=== PATIENT | female | born 1950 | race Caucasian/White ===

== ENCOUNTER → 2016-12-12 | Outpatient (CLI) | payer MEDICARE, OTHER ==
--- NOTE | 2016-12-12 12:17 | Diagnostic Imaging Report ---
INDICATION: Diabetic ulcer in the fourth digit. TECHNIQUE: AP, oblique, and lateral views of the right foot were obtained. FINDINGS: No fracture or acute bony abnormality is seen. There is no bony destructive lesion. There are degenerative findings of the midtarsal and tarsometatarsal joints. There is plantar calcaneal spurring. IMPRESSION: Chronic findings as above with no acute bony abnormality. Dictated by: Dictated on workstation # [id number]
== END ==
LOC: RAD 10:55
PROVIDERS: ATTEND Surgery
DX: E11.621 Type 2 diabetes mellitus with foot ulcer (principal); L97.512 Non-pressure chronic ulcer of other part of right foot with fat layer exposed; L03.115 Cellulitis of right lower limb
CPT/HCPCS: 73630

== ENCOUNTER 2017-01-09 08:32 | Outpatient (RCR) | payer MEDICARE, OTHER ==
--- OUTSIDE RECORDS SUMMARY | 2016-12-12 09:21 | XMS REPORT ---
Author Author JIE CARVER Organization [employer] Address Unknown Phone Unavailable Care Team Providers Care Last Puller Name Role Phone JIE CARVER CP Unavailable Allergies, Adverse Reactions, Alerts Substance Reaction Event Type Morphine Sulfate Info Not Available Drug Allergy Codeine Sulfate Info Not Available Drug Allergy Problems Problem Type Condition Code Onset Dates Condition Status Problem Mixed hyperlipidemia E78.2 Active Problem Diabetes type 2, uncontrolled E11.65 Active Problem Noncompliance of patient with dietary regimen Z91.11 Active Problem Counseling on health promotion and disease prevention Z71.89 Active Problem Acute cystitis with hematuria N30.01 Active Problem Type 2 diabetes mellitus with hyperglycemia E11.65 Active Problem Acute non-recurrent pansinusitis J01.40 Active Problem Essential hypertension with goal blood pressure less than 130\\/80 I10 Active Problem Tinnitus of both ears H93.13 Active Problem Vertigo R42 Active Assessment Counseling on health promotion and disease prevention Z71.89 Active Assessment Type 2 diabetes mellitus with hyperglycemia E11.65 Active Problem Second degree burn of finger of left hand, initial encounter T23.222A Active Assessment Encounter for immunization Z23 Active Problem Dysthymia F34.1 Active Medications Medication Code System Code Instructions Start Date End Date Status Dosage Atorvastatin Calcium [facility] 22032208292 40 MG take 1 tablet by Oral route at bedtime 1 time per day Avoid grapefruit juice Omeprazole [facility] 65993832990 20 MG take 1 capsule (20 mg) by oral route once daily before a meal Once a day Orally 90 days Trulicity [facility] [address]-47 0.75 MG/0.5ML Subcutaneous once weekly May 0.5 ml Aspir-81 [facility] [address]-62 81 MG Orally Once a day 1 tablet Mirtazapine [facility] [address]-77 15 MG Orally Once a day 1 tablet before bedtime in the evening Lisinopril-Hydrochlorothiazide [facility] 46467432454 20-12.5 MG Orally Once a day 1 tablet Sudafed [facility] [address]-66 60 mg Orally 3 times a day Jun 29, 2016 1 tablet as needed for sinus congestion Sertraline HCl [facility] [address]-70 100 MG Orally Once a day Aug 03, 2015 1 tablet Meclizine HCl [facility] [address]-49 25 MG Orally every 8 hours, PRN Jun 29, 2016 1 tablet as needed for vertigo Levemir [facility] 63232355886 100 UNIT/ML 70 units 2 times a day Subcutaneous Pen [place] 03/27" [facility] [address]-69 31G X 8 MM subcutaneously 4 times a day May 18, 2016 QID NovoLog Flexpen [facility] [address]-70 100 UNIT/ML Subcutaneous 3 times a day Sep 10, 2014 inject 25 Units by Subcutaneous route before meals 3 times per day Omeprazole [facility] 65845757406 20 MG TAKE ONE CAPSULE BY MOUTH ONCE DAILY BEFORE A MEAL. Lopressor [facility] 72903442704 50 MG 1 tablet every 12 hrs Orally 90 days Farxiga [facility] 17571706442 10 MG take 1 tablet by Oral route 1 time per day in the morning in am Once a day Orally 90 days Glucophage [facility] [place] [address]-75 1,000 mg Orally Twice a day Dec 17, 2014 1 tablet by Oral route 2 times per day with meals BusPIRone HCl [facility] [address]-15 10 MG Orally Twice a day Aug 03, 2015 1 tablet anxiety Zoloft [facility] 64574804545 100 MG 1 tablet by Oral route 1 time per day Procedures Procedure Coding System Code Date [facility] NOBLL Oct 04, 2016 VENIPUNCT, ROUTINE* CPT-4 72011 Oct 04, 2016 GLYCATED HEMOGLOBIN TEST CPT-4 76575 Oct 04, 2016 IMMUNIZATION ADMIN, EACH ADD (please include units) CPT-4 26413 Oct 04, 2016 SINGLE IMMUNIZATION ADMIN CPT-4 40755 Oct 04, 2016 Office Visit, Est Pt., Level 4 CPT-4 83718 Oct 04, 2016 [facility] VISIT ESTABLISHED PATIENT CPT-4 G0467 Oct 04, 2016 FLUARIX QUAD P-FREE 3 AND UP .50 2015 CPT-4 68870 Oct 04, 2016 PPV23 (PNEUMOVAX) CPT-4 74845 Oct 04, 2016 Vital Signs Date/Time: Oct 04, 2016 Cardiac Monitoring Heart Rate 76 bpm Weight 213.3 lbs Height 65 in BMI 35.49 Index Blood Pressure Diastolic 72 mmHg Blood Pressure Systolic 128 mmHg Results Name Result Date Reference Range Unit Abnormality Flag CBC ----Lymphs 36 03562949 % ----Neutrophils 56 09665696 % ----Baso (Absolute) 0.0 [id number] 0.0-0.2 x10E3/uL ----Hemoglobin 14.0 52742311 11.1-15.9 g/dL ----Eos (Absolute) 0.2 83299115 0.0-0.4 x10E3/uL ----Hematocrit 41.8 27788980 34.0-46.6 % ----Monocytes(Absolute) 0.5 34891131 0.1-0.9 x10E3/uL ----MCV 83 74776977 79-97 fL ----Lymphs (Absolute) 3.2 73995486 0.7-3.1 x10E3/uL H ----MCH 27.7 36004257 26.6-33.0 pg ----Neutrophils (Absolute) 5.0 44350243 1.4-7.0 x10E3/uL ----MCHC 33.5 68858033 31.5-35.7 g/dL ----Immature Granulocytes 0 57141941 % ----Basos 0 77439359 % ----RDW 15.1 46907613 12.3-15.4 % ----Immature Grans (Abs) 0.0 76481688 0.0-0.1 x10E3/uL ----WBC 8.9 73008042 3.4-10.8 x10E3/uL ----Platelets 204 91715189 150-379 x10E3/uL ----Eos 2 79264017 % ----RBC 5.05 18734937 3.77-5.28 x10E6/uL ----Monocytes 6 14899966 % LIPID PANEL ----LDL Cholesterol Calc 105 99509490 0-99 mg/dL H ----VLDL Cholesterol Phani 47 08356116 5-40 mg/dL H ----Cholesterol, Total 190 71741312 100-199 mg/dL ----HDL Cholesterol 38 20161004 >39 mg/dL L ----Triglycerides 237 20161004 0-149 mg/dL H A1C (IN HOUSE) ----A1C IN HOUSE 7.6 20161004 4.3 - 5.6 % ----Previous A1c 8.6 20161004 ----Lot 0644 [id number] ----Exp date 20161004 ROUTINE VENIPUNCTURE CMP ----Potassium, Serum 3.8 20161004 3.5-5.2 mmol/L ----Sodium, Serum 139 20161004 136-144 mmol/L ----BUN/Creatinine Ratio 26 20161004 11-26 ----eGFR If Africn Am 79 92760091 >59 mL/min/1.73 ----eGFR If NonAfricn Am 68 67824663 >59 mL/min/1.73 ----Creatinine, Serum 0.89 20161004 0.57-1.00 mg/dL ----BUN 23 20161004 8-27 mg/dL ----Glucose, Serum 151 20161004 65-99 mg/dL H ----AST (SGOT) 17 20161004 0-40 IU/L ----Globulin, Total 2.5 20161004 1.5-4.5 g/dL ----ALT (SGPT) 22 20161004 0-32 IU/L ----A/G Ratio 1.7 20161004 1.1-2.5 ----Bilirubin, Total 0.3 20161004 0.0-1.2 mg/dL ----Alkaline Phosphatase, S 55 20161004 39-117 IU/L ----Carbon Dioxide, Total 24 20161004 18-29 mmol/L ----Calcium, Serum 9.5 20161004 8.7-10.3 mg/dL ----Protein, Total, Serum 6.8 20161004 6.0-8.5 g/dL ----Albumin, Serum 4.3 20161004 3.6-4.8 g/dL ----Chloride, Serum 97 20161004 97-106 mmol/L Immunizations Vaccine Administration Date FLUARIX QUAD P-FREE 3 AND UP .50 2015Oct 04, 2016 [id number] (PNEUMOVAX) Oct 04, 2016 Summary Purpose [employer] Submission
== END 2017-01-09 16:00 | disposition home or self-care (01) ==
LOC: WOUNDCARE 08:32
PROVIDERS: ATTEND Surgery
DX: E11.621 Type 2 diabetes mellitus with foot ulcer (principal); L97.512 Non-pressure chronic ulcer of other part of right foot with fat layer exposed; L03.115 Cellulitis of right lower limb
CPT/HCPCS: 11042; 73630; 87070; 87075; 87077; 87186; 87205; 99212

== ENCOUNTER → 2019-08-25 | Outpatient (CLI) | payer MEDICARE, OTHER | LOC: WOUNDCARE 12:28 | PROVIDERS: ATTEND Surgery | DX: E11.622 Type 2 diabetes mellitus with other skin ulcer (principal); E11.42 Type 2 diabetes mellitus with diabetic polyneuropathy; E11.52 Type 2 diabetes mellitus with diabetic peripheral angiopathy with gangrene; L97.222 Non-pressure chronic ulcer of left calf with fat layer exposed; I96 Gangrene, not elsewhere classified; L97.211 Non-pressure chronic ulcer of right calf limited to breakdown of skin; L95.9 Vasculitis limited to the skin, unspecified | CPT/HCPCS: 11104 ==

== ENCOUNTER → 2019-09-01 | Outpatient (CLI) | payer MEDICARE | LOC: WOUNDCARE 13:51 | PROVIDERS: ATTEND Surgery | DX: L97.222 Non-pressure chronic ulcer of left calf with fat layer exposed (principal); L97.211 Non-pressure chronic ulcer of right calf limited to breakdown of skin; I87.333 Chronic venous hypertension (idiopathic) with ulcer and inflammation of bilateral lower extremity; E11.42 Type 2 diabetes mellitus with diabetic polyneuropathy; E11.622 Type 2 diabetes mellitus with other skin ulcer; E11.52 Type 2 diabetes mellitus with diabetic peripheral angiopathy with gangrene | CPT/HCPCS: 11042 ==

== ENCOUNTER → 2019-09-08 | Outpatient (CLI) | payer MEDICARE | LOC: WOUNDCARE 14:04 | PROVIDERS: ATTEND Surgery | DX: E11.622 Type 2 diabetes mellitus with other skin ulcer (principal); E11.42 Type 2 diabetes mellitus with diabetic polyneuropathy; E11.52 Type 2 diabetes mellitus with diabetic peripheral angiopathy with gangrene; I96 Gangrene, not elsewhere classified; L97.222 Non-pressure chronic ulcer of left calf with fat layer exposed; L97.211 Non-pressure chronic ulcer of right calf limited to breakdown of skin; I87.333 Chronic venous hypertension (idiopathic) with ulcer and inflammation of bilateral lower extremity | CPT/HCPCS: 11042 ==

== ENCOUNTER → 2019-09-15 | Outpatient (CLI) | payer MEDICARE | LOC: WOUNDCARE 13:57 | PROVIDERS: ATTEND Surgery | DX: E11.622 Type 2 diabetes mellitus with other skin ulcer (principal); E11.52 Type 2 diabetes mellitus with diabetic peripheral angiopathy with gangrene; E11.42 Type 2 diabetes mellitus with diabetic polyneuropathy; I87.333 Chronic venous hypertension (idiopathic) with ulcer and inflammation of bilateral lower extremity; I96 Gangrene, not elsewhere classified; L97.222 Non-pressure chronic ulcer of left calf with fat layer exposed; L97.211 Non-pressure chronic ulcer of right calf limited to breakdown of skin | CPT/HCPCS: 11042 ==

== ENCOUNTER → 2019-09-22 | Outpatient (CLI) | payer MEDICARE | LOC: WOUNDCARE 13:33 | PROVIDERS: ATTEND Surgery | DX: E11.622 Type 2 diabetes mellitus with other skin ulcer (principal); E11.42 Type 2 diabetes mellitus with diabetic polyneuropathy; L97.222 Non-pressure chronic ulcer of left calf with fat layer exposed; L97.211 Non-pressure chronic ulcer of right calf limited to breakdown of skin; I87.333 Chronic venous hypertension (idiopathic) with ulcer and inflammation of bilateral lower extremity | CPT/HCPCS: 99212 ==